=== PATIENT | female | born 1960 | race Caucasian/White ===

== ENCOUNTER → 2018-02-15 | Outpatient (CLI) | payer OTHER | LOC: MC.RAD 10:49 | DX: Z12.31 Encounter for screening mammogram for malignant neoplasm of breast (principal) ==

== ENCOUNTER → 2019-03-12 | Outpatient (CLI) | payer OTHER | LOC: COL.RAD 03-11 08:15 | DX: M51.16 Intervertebral disc disorders with radiculopathy, lumbar region (principal) ==

== ENCOUNTER → 2020-01-16 | Outpatient (CLI) | payer OTHER | LOC: MC.RAD 11:21 | DX: Z12.31 Encounter for screening mammogram for malignant neoplasm of breast (principal) ==

== ENCOUNTER → 2021-02-15 | Outpatient (CLI) | payer OTHER | LOC: COL.RAD 07:10 | DX: R31.21 Asymptomatic microscopic hematuria (principal) | CPT/HCPCS: Q9967 ==

== ENCOUNTER → 2021-02-22 | Outpatient (CLI) | payer OTHER | LOC: MC.RAD 08:07 | DX: Z12.31 Encounter for screening mammogram for malignant neoplasm of breast (principal) ==

== ENCOUNTER 2021-11-22 16:34 | Emergency (ER) | payer OTHER ==
[~2021-11-22] VITALS: Ht 175.3 cm; Wt 90.0 kg
[2021-11-22] MEDS ORDERED: MOBIC15 MG PO (16:47)
[2021-11-22] MEDS ORDERED: PRESERVISION1 SGL PO (16:48)
[2021-11-22 17:54] LABS: INR 1.1 (0.8-3.0)
[2021-11-22 18:00] LABS: D-DIMER < 200.00 ng/mLDDu (200-230)
[2021-11-22 18:50] VITALS: BP 126/61; PULSE 69; TEMP 98.3
== END 2021-11-22 18:50 | disposition home or self-care (01) ==
LOC: COL.ER 16:34
PROVIDERS: Nurse Practitioner Primary Care
DX: M79.89 Other specified soft tissue disorders (principal); M79.661 Pain in right lower leg; M17.11 Unilateral primary osteoarthritis, right knee; Z79.1 Long term (current) use of non-steroidal anti-inflammatories (NSAID)

== ENCOUNTER → 2021-11-23 | Outpatient (CLI) | payer OTHER ==
[~2021-11-23] MED LIST: MOBIC15 MG PO; PRESERVISION1 SGL PO
== END ==
LOC: COL.RAD 07:43
DX: M79.89 Other specified soft tissue disorders (principal)

== ENCOUNTER → 2022-04-07 | Outpatient (CLI) | payer OTHER | LOC: MC.RAD 06:58 | DX: Z12.31 Encounter for screening mammogram for malignant neoplasm of breast (principal) ==

== ENCOUNTER → 2022-06-08 | Outpatient (CLI) | payer OTHER | LOC: COL.RAD 13:59 | DX: M25.511 Pain in right shoulder (principal); M25.411 Effusion, right shoulder ==

== ENCOUNTER → 2024-04-25 | Outpatient (CLI) | payer OTHER ==
[~2024-04-25] MED LIST changes: +ASPIRIN 81M81 MG/TA2 PO; +CELEBREX50 MG PO; +CEPHALEXIN500 M1 PO; +NATURAL E400 IU PO; +OSCAL 500 TAB500 MG PO; +PERCOCET 325 MG1 TA2 PO; +VITAMIN D 400400 IU PO
== END ==
LOC: MC.RAD 07:33
DX: Z12.31 Encounter for screening mammogram for malignant neoplasm of breast (principal)